=== PATIENT | female | born 1985 | race Caucasian/White ===

== ENCOUNTER 2023-11-14 18:56 | Emergency (ER) | payer OTHER, SELFPAY ==
[2023-11-14 19:01] VITALS: BP 185/128
[2023-11-14 19:19] LABS: % Basophils 0.7 % (0-2); % Eosinophils 4.5 % (0-6); % Immature Granulocytes 0.3 % (0-0.5); % Lymphocytes 24.4 % (20.5-51.1); % Monocytes 7.1 % (1.7-9.3); Absolute Basophils 0.1 10^3/uL (0-0.2); Absolute Eosinophils 0.4 10^3/uL (0-0.7); Absolute Lymphocytes 2.2 10^3/uL (1.2-3.4); Absolute Monocytes 0.6 10^3/uL (0.1-0.6); Absolute Neutrophils 5.6 10^3/uL (1.4-6.5); Hematocrit 41.9 % (37.0-47.0); Hemoglobin 15.3 g/dL (12.0-16.0); Mean Corp Hgb Conc. 36.5 g/dL (33.0-37.0); Mean Corpuscular Volume 87.7 fL (81.0-99.0); Mean Platelet Volume 9.4 fL (7.4-10.4); Nucleated Red Blood Cells % 0 %; Platelet Count 265 10^3/uL (130-400); Red Blood Cell Count 4.78 10^6/uL (4.20-5.40); Red Cell Dist. Width 11.9 % (11.5-14.5); White Blood Cell Count 8.8 10^3/uL (4.8-10.8)
[2023-11-14 19:44] LABS: Troponin I < 0.012 ng/ml
[2023-11-14 19:49] LABS: ALT (SGPT) 25 U/L (0-35); AST (SGOT) 25 U/L (14-36); Alkaline Phosphatase 77 U/L (38-126); Blood Urea Nitrogen 17 mg/dl (7-17); Carbon Dioxide 27 mmol/L (22-30); Chloride 102 mmol/L (98-107); Glucose 97 mg/dl (70-99); Sodium 138 mmol/L (135-145); Total Protein 6.6 g/dl (6.3-8.2); eGFR > 60.00
[2023-11-14 20:49] VITALS: BMI 42.0
[2023-11-14 20:53] VITALS: BP 141/90
--- NOTE | 2023-11-14 20:56 | EDRN ---
Pt having sharp pain under R rib cage since yesterday at 1500. Pt went to doctor on Wednesday because she wa urinating frequently and pt received an outpatient order for CT. Blood and urine samples obtained. No uti. Pt did not get result of
bloodwork. Pt says her R shoulder 'became like a shoulder' with pain going into R neck and back. In addition to pain under R breast, pt has had a band like pain across her upper abd/lower chest. Pt took 2 motrin today at 1400 that helped a
little bit but symptoms got worse around [id number]. In that time period, pt ate nachos with cheese, ground beef mushroom and onions and more cheese. No n/v/constipation. Pt had 4 episodes of diarrhea yesterday. Pt felt chilled on way to
hospital. No known fever or cough.
[2023-11-14 21:00] VITALS: BP 134/87
[2023-11-14 21:35] LABS: HCG, Serum Qualitative Screen Negative
[2023-11-14 21:39] LABS: Lipase 187 U/L (23-300)
[2023-11-14 22:00] VITALS: BP 123/86
--- NOTE | 2023-11-14 22:14 | ED.GENMED ---
History of Present Illness
General
Chief Complaint: Chest Pain
Source: patient and family
Exam Limitations: none
Time Seen by Provider: 11/14/23 22:06
Nursing documentation reviewed up to this point in time: agreed with
Travel History
Have you had any contact with someone who has COVID-19?: No
Do you have any symptoms of coronavirus? Fever > 100 degrees, chills, cough, shortness of breath, sore throat, loss of taste or smell, muscle aches, or headache?: No
History of Present Illness
History of Present Illness:
Pleasant 38-year-old female that presents with Chest pain has been present for the last 24 hours. Patient states that the pain is in her upper abdomen and radiates to her right shoulder. She states that it was worsened with food. Denies any
breathing difficulty. Denies fever, chills, nausea or vomiting. Patient states that she quit drinking alcohol heavily approximately 1 month ago. She does not smoke or use illicit substances. 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 She
states that she has been under a lot of pressure lately. Denies previous cardiac history. She does have a history of hypertension and irritable bowel syndrome.
Past History
Past History
ED Past Medical History: Other (Kidney stones, ectopic )
ED Past Surgical History: Urological (Previous nephrostomy tube and stent for stone) and Other (Ectopic )
Social History
Tobacco: Non-smoker
Alcohol: None
Drug: None
Review of Systems
Review of Systems
Allergies reviewed?: Yes
Other source history: family
All Other Systems: ROS reviewed and negative except as documented in HPI and ROS
Constitutional: Reports no symptoms
EENT: Reports no symptoms
Respiratory: Denies trouble breathing
Cardiac: Reports palpitations
ABD/GI: Reports abdominal pain
: Reports no symptoms
Musculoskeletal: Reports no symptoms
Skin: Reports no symptoms
Neurological: Reports no symptoms
Endocrine: Reports no symptoms
Hematologic/Lymphatic: Reports no symptoms
Psychiatric: Reports no symptoms
Phy Exam
General Physical Exam
General Presentation: well appearing and no apparent distress
General Skin: warm and dry
General Habitus: normal
General Mental: alert
General Hydration: appears well hydrated
ENT Exam
ENT Exam: EOMI, pharynx normal, neck supple and normocephalic
Eye Exam
Eye Exam: PERRL, cornea clear and conjunctiva normal
Cardiovascular Exam
Cardiovascular Exam: regular rate/rhythm, no edema, no murmur and normal peripheral pulses
Pulmonary Exam
Pulmonary Exam: lungs clear, no respiratory distress, no rales, no crackles, no rhonchi, no stridor, no wheezing and no cough
Gastrointestinal Exam
Gastrointestinal Exam: normal bowel sounds, soft, no organomegaly, no pulsatile mass and non distended
Palpation: right upper quadrant: Minimal tenderness (Negative Weaver sign)
Neurological Exam
Neurological Exam: alert, oriented x3, no motor deficits and speech normal
Musculoskeletal Exam
Musculoskeletal Exam: full ROM and no edema
Skin Exam
Skin Exam: normal color, warm/dry, no rash and no petechia
Psychiatric Exam
Psychiatric Exam: normal mood/affect
Scores
Heart Score for Chest Pain Patients
STEMI patient?: No
History: Slightly or Non-Suspicious
ECG: Normal
Age: </= 45 years
Risk Factors: No Risk Factors
Troponin: </= Normal Limit
Heart Score for Chest Pain Patients: 0
Heart Score Risk: 2.5% MACE over next 6 weeks
Course
Orders/Labs/Results
Orders:
Orders
11/14/23 18:57
EKG [Electrocardiogram (*1)] Urgent
Reason for Study: Chest Pain
EKG- Treatment ONCE
11/14/23 19:07
Cardiac Monitoring- Treatment ONCE
IV Insert/Care/Rem.- Treatment PRN
O2 Therapy [RESP] Urgent
Titrate/Wean O2 to maintain O2 sat greater than (%): 90
Special Instructions: Maintain sats >/=90%
Pulse Ox/spot Check [RESP] Urgent
Quantity: 1
Special Instructions: ON ROOM AIR
11/14/23 19:14
Complete Blood Count/With Diff Urgent
Comprehensive Metabolic Panel Urgent
HCG, Serum Qualitative Screen Urgent
Comment: ADD ON
Lipase Urgent
Comment: ADD ON
Troponin I Urgent
11/14/23 21:01
Add On- LAB Urgent
Tests Added?: lipase and hcg qualitative
11/14/23 22:25
0.9% Sodium Chloride 1000 ml [Nss] 1,000 ml IV BOLUS
US Abdomen Complete/Upper Urgent
Comment:
Reason For Exam: upper abd pain
Abnormal Lab Results
11/14/23
19:14
MCH 32.0 H pg
(27.0-31.0)
11/14/23 19:14
11/14/23 19:14
Vital Signs
Initial and Last Documented VS:
Initial Vital Signs
Pulse Resp BP Pulse Ox
96 18 185/128 99
11/14/23 19:01 11/14/23 19:01 11/14/23 19:01 11/14/23 19:01
Last Documented Vital Signs
Pulse Resp BP Pulse Ox
79 16 143/86 96
11/15/23 00:00 11/15/23 00:00 11/15/23 00:00 11/14/23 22:00
MDM/Problems Addressed
Differential Diagnosis Includes:
Biliary colic, GERD, musculoskeletal
*Radiology
Radiology exam reviewed: radiology read reviewed
*Pulse Oximetry
Patient hypoxic: no
*EKG
Interpreted by ED Provider?: Yes
EKG Intrepretation Date: 11/15/23
Rate: normal
Rhythm: PVC's
Cecil: normal axis
Interval: normal interval
QRS Pattern: normal QRS
Ischemia: no ischemia
*Baker Helper Interpretation
Rate: normal
Interpretation: normal
Heart Rate: 78
Rhythm: sinus and PVC's
*Critical Care Note
Total Time (30-74mins, 75-104mins- exclusive of procedures): Not Applicable
Patient Management
Social determinants of health affecting care: Strong social support
ED Attending Note
-
Portions of this chart may have been created with voice recognition software.� Occasional wrong word or��sound alike� substitutions may have occurred due to the inherent limitations of voice recognition software.
Discharge Plan
Departure
Patient Disposition: Home (Routine Discharge)
Date of Disposition: 11/15/23
Time of Disposition: 00:18
Patient with high blood pressure during this ER visit?: Yes
Condition: Good
Discharge Problem:
Biliary colic, Palpitations
Instructions: Gallstones (DC), BLOOD PRESSURE
Prescriptions:
No Action
dextroamphetamine-amphetamine [Adderall] 20 MG tablet
20 mg PO BID
hyoscyamine sulfate 0.25 MG tablet,disintegrating
0.25 mg PO BIDPRN PRN (Reason: IBS)
valsartan 160 mg Tablet
160 mg PO DAILY
Referrals:
Daniel Reardon MD [Family Provider] -
Alvarado Jeter MD [Active] - As needed
Activity Restrictions/Additional Instructions:
It was a pleasure meeting you and taking part in your care. We hope for your continued healing and wellness.
Please read discharge instructions in their entirety. However, they are for general education and may not describe your exact diagnosis at discharge. Information on your ER visit and medical conditions were discussed with you along with appropriate
follow up information...
If indicated, please take your medications as instructed and indicated on discharge paperwork.
Please schedule a follow up appointment as directed. Call to schedule an appointment
Please return to the emergency department with ANY change in, persisting, or worsening of symptoms. If any of your symptoms do not improve, or persist, or become more severe within 6-12 hours, please return to the emergency department for further
care.
Please return to the emergency department if you develop a headache, neck pain/stiffness, fever greater than 100.4F, chest pain, shortness of breath, persistent nausea, vomiting, slurred speech, difficulty walking, numbness/tingling, weakness, signs
of infection or any other symptoms that are worrisome to you.
If you have any questions or concerns please do not hesitate to call the Hospital at or E-mail me directly at [email or web address]
Interventions
Interventions:
*Risk Screen - Suicide Last Done: 11/14/23 19:01
*General Assessment Last Done: 11/14/23 19:01
*Neglect/Abuse Screening Last Done: 11/14/23 19:01
*ED COVID-19 Vaccine History Last Done: 11/14/23 19:01
*Nursing Disposition Last Done: 11/15/23 00:40
ED- Cardiac Assessment Last Done: 11/14/23 21:02
Discharge Date and Time
Discharge Date/Time: 11/15/23 00:40
[2023-11-14] MEDS: NSS 1000 IV (23:43)
[2023-11-14 23:48] VITALS: BP 161/91
[2023-11-15] VITALS: BP 143/86
== END 2023-11-15 00:40 | disposition home or self-care (01) ==
LOC: EMR 18:56
PROVIDERS: Student in an Organized Health Care Education/Training Program; EMERGENCY PHYSICIAN Student in an Organized Health Care Education/Training Program; FAMILY PHYSICIAN Family Medicine
DX: K80.50 Calculus of bile duct without cholangitis or cholecystitis without obstruction (principal); R00.2 Palpitations; R07.9 Chest pain, unspecified; I10 Essential (primary) hypertension; K58.9 Irritable bowel syndrome, unspecified
CPT/HCPCS: 99285; 96360; 76700; 80053; 83690; 84484; 84703; 85025; 93005

== ENCOUNTER → 2023-12-20 08:47 | Day surgery (SDC) | payer OTHER, SELFPAY ==
--- NOTE | 2023-12-13 13:35 | PTCARENOTE ---
Patients 11/14 EKG abnormal- reviewed by Dr. Muir- no additional interventions required
[2023-12-20] VITALS (14 sets, daily range): BP systolic 86–157; BP diastolic 53–118
[2023-12-20] MEDS: TYLENOL 1000 MG PO (13:05)
[2023-12-20] MEDS: IC GREEN 2.5 MG IV (13:14)
[2023-12-20] MEDS: NORMOSOL-R 1000 IV (13:15)
--- NOTE | 2023-12-20 14:56 | W.IMMPOSTOP ---
Surgical Immed Post Op Note
-
Primary Surgeon: Steffany
Assisting: Ld JOHNSON
Pre-op Diagnosis: Biliary colic
Post-op Diagnosis: Chronic cholecystitis
Procedure Performed: Robot assisted laparoscopic cholecystectomy
Anesthesia Type: GETA
Specimen / Cultures: Gallbladder
Estimated Blood Loss: 5cc
Complications: None immediate
Operative Findings: softly distended floppy gallbladder with redundant 'mesentery'
[2023-12-20] MEDS: ZOFRAN 4 MG IV (15:27)
--- NOTE | 2023-12-20 15:34 | OR.RPT ---
Operative Report
Operative Report
Primary Surgeon: Steffany
Assisting: Ld JOHNSON
Pre-op Diagnosis: Biliary colic
Post-op Diagnosis: Chronic cholecystitis
Procedure Performed: Robot assisted laparoscopic cholecystectomy
Anesthesia Type: GETA
Specimen / Cultures: Gallbladder
Estimated Blood Loss: 5cc
Complications: None immediate
Operative Findings: softly distended floppy gallbladder with redundant 'mesentery'
Date of Surgery:� 12/20/23
Indications: This 38F developed biliary colic with normal liver enzymes and without ductal dilation. Laparoscopic cholecystectomy was elected.
Description of procedure: The patient was placed on the operating table in the supine position. General anesthesia was induced. A time-out was completed verifying correct patient, procedure, site, positioning, and special equipment prior to
beginning this procedure. An orogastric tube was placed. The abdomen was prepped and draped in the usual sterile fashion. A stab incision was made in left upper quadrant and the Veress needle was inserted. Proper position was confirmed by aspiration
and saline meniscus test. The abdomen was insufflated with carbon dioxide to a pressure of 12mmHg. The patient tolerated insufflation well.
A 8mm trocar was then inserted above the umbilicus. The laparoscope was inserted and the abdomen inspected. No injuries from initial trocar placement or Veress needle insertion were noted. Additional 8mm trocars were then inserted in the following
locations: two in the right lower quadrant and to the left of the umbilicus and just above. The abdomen was inspected and no abnormalities were found. The table was placed in the reverse Trendelenburg position with the right side up. The dome of the
gallbladder was grasped with an atraumatic grasper and retracted over the dome of the liver. The infundibulum was then grasped with an atraumatic grasper and retracted toward the right lower quadrant. This maneuver exposed Calot�s triangle. The
peritoneum overlying the gallbladder infundibulum was then incised and the cystic duct and cystic artery identified and circumferentially dissected so that a clear view of the liver was achieved through a window between the cystic duct an cystic
artery. At this time, the only two structures going into the gallbladder were the cystic artery and cystic duct.
The cystic duct was then doubly clipped and divided. The cystic artery was controlled with bipolar and divided. The gallbladder was then dissected from its peritoneal attachments by electrocautery. Hemostasis was assured and the gallbladder was
removed using an endoscopic retrieval bag placed through the umbilical port. The gallbladder was passed off the table as a specimen. The gallbladder fossa was closely inspected and hemostasis was again assured. There was no evidence of bleeding from
the gallbladder fossa or cystic artery or leakage of the bile from the cystic duct stump. The umbilical trocar site was closed at the fascial level with 2-0 PDS. Secondary trocars were removed under direct vision and noted to be hemostatic. The
abdomen was allowed to collapse. The skin was closed with subcuticular sutures of 4-0 monocryl and topical skin adhesive. The orogastric tube was removed.
The patient tolerated the procedure well and was taken to the postanesthesia care unit in stable condition.
[2023-12-20] MEDS: COMPAZINE 5 MG IV (15:56)
[2023-12-20] MEDS: SUBLIMAZE 50 MCG IV (16:18)
== END | disposition home or self-care (01) ==
LOC: SDS 08:47
PROVIDERS: ATTENDING PHYSICIAN Surgery
DX: K80.44 Calculus of bile duct with chronic cholecystitis without obstruction (principal); K63.89 Other specified diseases of intestine
CPT/HCPCS: 47562; 88304; 93005